=== PATIENT | male | born 1965 | race Caucasian/White ===

== ENCOUNTER 2017-03-21 05:53 | Inpatient (IN) ==
[2017-03-21] MEDS ORDERED: Ringers Solution, Lactated 1,000 ML IVC SCH ×2 (06:15→13:14)
[2017-03-21] MEDS ORDERED: CeFAZolin Pre 2,000 MG/100 ML 2,000 MG/100 ML BAG IVPB ONE (06:16)
[2017-03-21] MEDS ORDERED: Albuterol 2.5 MG/3 ML NEBULIZER IH ONE (06:16)
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
[2017-03-21] MEDS ORDERED: Lidocaine -MPF 2% 2 ML VIAL ONE (07:15)
[2017-03-21] MEDS ORDERED: Ketorolac 30 MG/ML VIAL ONE (07:15)
[2017-03-21] MEDS ORDERED: *HR* Propofol 200 MG/20 ML VIAL IVP ONE ×2 (07:15→10:03)
[2017-03-21] MEDS ORDERED: *HR* Midazolam HCl 2 MG/2 ML VIAL ONE (07:15)
[2017-03-21] MEDS ORDERED: Ondansetron 4 MG/2 ML VIAL ONE (07:15)
[2017-03-21] MEDS ORDERED: *HR* Remifentanil 1 MG VIAL IVP ONE ×3 (07:16→10:44)
[2017-03-21] MEDS ORDERED: Lidocaine -MPF 4% 5 ML AMPUL ONE (07:44)
--- NOTE | 2017-03-21 07:58 | History & Physical Report ---
Date of Encounter: 03/21/17 Time of Encounter: 07:35 24 Hour HP Update - Instructions Instructions: If the History and Physical is less than 30 days old and was completed prior to A.M. admission and or procedure and has NOT been updated on calendar day of procedure please complete this update prior to performing procedure. - Update Patient reports changes in Medical Condition: No Changes in examination, assessment, or condition: No Changes in Medication: No Preop tests/diagnostics Reviewed: Yes Pre-Op MRSA Screen: Negative Surgery Remains Indicated: Yes Consent for Planned Operative Procedure(s) Verified: Yes - Pre-Operative Checklist Preoperative Checklist Indicated: No Prophylactic Antibiotic Ordered: Yes Home Medications Include Beta Estefanía: No Beta Estefanía Taken Today (Day of Surgery): No Beta Estefanía Taken Yesterday (Day Prior to Surgery): No Is VTE Prophylaxis Indicated?: Yes
[2017-03-21] MEDS ORDERED: *HR* FentaNYL (PF) 100 MCG/2 ML VIAL ONE (08:09)
[2017-03-21] MEDS ORDERED: EPHEDrine 50 MG/ML VIAL ONE (08:43)
[2017-03-21] MEDS ORDERED: *HR* Phenylephrine 10 MG/ML VIAL ONE (09:14)
[2017-03-21] MEDS ORDERED: *HR* Vasopressin 20 UNIT/ML VIAL ONE (10:38)
[2017-03-21] MEDS ORDERED: *HR* Promethazine 25 MG/ML VIAL IVP PRN (11:50)
[2017-03-21] MEDS ORDERED: Albuterol 2.5 MG/3 ML NEBULIZER IH PRN (11:50)
[2017-03-21] MEDS ORDERED: *HR* Midazolam HCl 2 MG/2 ML VIAL IVP PRN (11:50)
[2017-03-21] MEDS ORDERED: *HR* HYDROmorphone (PF) 1 MG/ML SYRINGE IVP PRN (11:50)
[2017-03-21] MEDS ORDERED: *HR* HYDROmorphone 2 MG/ML SYRINGE ONE (11:55)
[2017-03-21] MEDS ORDERED: Neostigmine Methylsulfate 3 MG/3 ML SYRINGE ONE (11:58)
[2017-03-21] MEDS ORDERED: Dexamethasone 4 MG/ML VIAL ONE (11:59)
--- NOTE | 2017-03-21 12:27 | Orthopedic Operative Note ---
Date of procedure: 03/21/17 Pre-op diagnosis: Degenerative scoliosis, lumbar stenosis with radiculopathy, s/ p lumbar fusi Post-op diagnosis: same Operation/Findings: Exploration of fusion, removal of hardware, posterior lumbar interbody fusion L4 -L5: The patient successfully underwent general endotracheal anesthesia. The patient was given antibiotics prior to the start of the procedure. Compression boots and stockings were used for deep vein thrombosis prophylaxis. A Shaw catheter was placed. Leads for neuro monitoring were placed on the upper and lower extremities. This included the cranium. The neuro monitoring personnel confirmed there were satisfactory readings prior to the start of the procedure. The patient was turned prone on the Alfonso table. The back was prepped and draped in the usual sterile fashion. An incision was was marked and centered over the involved L4-S1 levels in the mid line. The incision was deepened through the lumbar fascia. Bovie cautery and Montaño elevators were used to reflect the paraspinal musculature at the lateral extent of the transverse processes of the involved L4, L5, and S1 levels. Yanni clamps were placed over the L4 and L5 spinous processes. An intraoperative lateral fluorograph was obtained. A conversation was held between the surgeon and radiologist and both confirmed we had the correct operative levels. We explored and palpated the fusion mass at L5 and S1 and the hardware in this region. Direct palpation of the fusion mass revealed a relatively solid arthrodesis. We removed the pedicle screws at L5 and S1 including the intervening rods bilaterally. We then placed new pedicle screws in standard fashion with the aid of fluoroscopy and anatomic landmarks. Briefly a starter awl was used. A gearshift was subsequently used to enter the pilot plant research technician hole via a transpedicular route into the vertebral body. The pilot plant research technician hole was tapped with an undersized instrument, and subsequently four 6.5 x 40 mm pedicle screws were placed bilaterally at the indicated L4 and L5 levels. The screws were tested with the aid of the neurologic monitoring staff via pedicle screw stimulation. All reading suggested there was no significant cortical wall breech. The screws were also evaluated fluoro- graphically and appeared to be in satisfactory position. We then turned our attention to the decompression portion of the procedure. We removed the supraspinous and interspinous ligaments and subsequently the insertion of the ligamentum flavum on the undersurface of the proximal L4 lamina was dislodged with a curette. We then removed the ligamentum flavum as well as undercut the L4-L5 facets at this level to decompress the lateral recesses. We also performed a L4 laminectomy. After the decompression, which was over and above that which was required to place the interbody graft, the foramen and traversing roots at this L4-L5 level were found to be free and patent. We also took part of the medial facets in order to aid in the decompression. We then protected the neural elements including the thecal sac and traversing nerve root on the right at L4-5 with a dural retractor. We made an annulotomy into the L4-5 disc space and then removed disc material using Pituitary instruments. We trialed various size grafts after the endplates were prepared for graft insertion. A 12 x 26 enter body graft fit well within the L4 -L5 disc space. We obtained some bone from the right posterior superior iliac spine through us a separate incision and combined with this with the bone which we had saved from the laminectomy portion of the procedure. This autograft bone was first placed in the anterior portion of the L4-L5 disc space and additional bone was placed within the interbody graft spacer. We then placed the interbody graft spacer obliquely across the L4-L5 disc space towards the midline while protecting the neural elements with a root retractor. When the graft was found to be in satisfactory position the cement truck loader was removed. We then copiously irrigated the wound. We then decorticated the L4 and L5 transverse processes as well as the L4-L5 facet joints of the involved levels to aid in the posterolateral fusion. We placed autograft bone in the lateral gutters over these regions. We then placed rods within the screw heads of the involved L4 and L5 levels and first locked the distal screws and then subsequently locked the proximal screws. We then closed the wound in layers with 1 Vicryl for the fascia, 2-0 Vicryl. Subcutaneous tissue, and Dermabond was used for skin closure. Sterile dressings were placed over the wound. The patient was turned supine on a hospital bed and extubated. All sponge instruments and needle counts were correct at the end of the procedure. The patient tolerated the procedure well without complications. Anesthesia: GETA Surgeon: Konrad Davalos Jr Estimated blood loss (cc): 250 Condition: stable Disposition: PACU
--- NOTE | 2017-03-21 13:04 | Anesthesia Evaluation Post Op ---
Date of Encounter: 03/21/17 Time of Encounter: 13:03 - Vital Signs Vital Signs: Vital Signs/O2 Sat/Glucose, Most Recent Temp Pulse Resp BP Pulse Ox 98.1 F 82 17 127/63 96 03/21/17 12:54 03/21/17 12:54 03/21/17 12:54 03/21/17 12:54 03/21/17 12:54 - Lungs Lungs: Clear Ascult./Percussion - Airway Airway: Non-obstructed - Cardiovascular Regular Rate, Baseline Rhythm - Mental Status Mental Status: Asleep with brisk response to light stimulation - Pain Pain Scale: 5 Pain Scale used: Numeric (1 - 10) - Nausea Vomiting Nausea Vomiting: Not Present - Hydration Hydration: Ice chips, Shaw catheter Notes: 03/21/17 13:03 naac - Discharge PostOp Status: Transfer Patient to floor
[2017-03-21] MEDS ORDERED: Ondansetron 4 MG/2 ML VIAL IVP PRN (13:14)
[2017-03-21] MEDS ORDERED: USTEKINUMAB 90 MG/ML SQ SCH (13:14)
[2017-03-21] MEDS ORDERED: Naloxone 0.4 MG/ML INJ IVP PRN (13:14)
[2017-03-21] MEDS: *HR* Morphine 2 MG/ML SYRINGE IVP PRN ×2 (13:32→17:46)
[2017-03-21] MEDS: *HR* OxyCODONE Immed Rel 5 MG TABLET PO PRN ×2 (14:28→20:27)
[2017-03-21] MEDS: ceFAZolin 2,000 MG in D5% in Water 100 ML IVPB SCH (16:27)
[2017-03-22] MEDS: *HR* Morphine 2 MG/ML SYRINGE IVP PRN ×3 (00:14→15:48)
[2017-03-22] MEDS: ceFAZolin 2,000 MG in D5% in Water 100 ML IVPB SCH (00:14)
[2017-03-22] MEDS: *HR* OxyCODONE Immed Rel 5 MG TABLET PO PRN ×3 (03:51→19:23)
[2017-03-22 04:26] LABS: Basophils % 0.2 %; Hematocrit 45.4 % (37.5-50.1); Hemoglobin 15.4 g/dL (12.9-16.9); Immature Granulocytes % 0.7 % (0-4); Lymphocytes # 1.1 K/mcL (0.6-4.6); Lymphocytes % 5.6 %; Mean Corpuscular HGB Conc 33.9 g/dL (31.6-35.5); Mean Corpuscular Hemoglobin 30.1 pg (28.0-33.3); Mean Corpuscular Volume 88.7 fL (83.0-100.0); Mean Platelet Volume 10.1 fL (9.4-12.4); Monocytes # 1.7 K/mcL (0.0-1.3); Monocytes % 8.7 %; Neutrophils # 16.8 K/mcL (1.6-8.9); Platelet Count 193 K/mcL (140-400); Red Blood Count 5.12 M/mcL (4.19-5.50); Red Cell Distribution Width 12.2 % (11.5-14.5); Segmented Neutrophils % 84.8 %
[2017-03-22 04:45] LABS: BUN/Creatinine Ratio 12 (6-26); Blood Urea Nitrogen 10 mg/dL (8-26); Calcium 8.9 mg/dL (8.6-10.8); Carbon Dioxide 21 mEq/L (19-29); Chloride 107 mEq/L (98-109); Glucose 133 mg/dL (70-99); Osmolality,Calculated 285 (280-300); Potassium 4.5 mEq/L (3.5-4.5); Sodium 137 mEq/L (136-145); eGFR For African Americans > 60 (> 60); eGFR For Non-African Americans > 60 (> 60)
[2017-03-22] MEDS: NEBIVOLOL HCL 2.5 MG PO SCH (07:22)
--- NOTE | 2017-03-22 10:50 | Orthopedics Progress Note ---
Date of Encounter: 03/22/17 Time of Encounter: 12:30 - Assessment and Plan (1) Spinal stenosis of lumbar region with radiculopathy Current Visit: Yes Status: Chronic Discussed with patient. Dressing change requested from nurse. Will add Acetaminophen for anti-inflammatory action. Will add trial of muscle relaxer for the stiffness. Will get brace adjustment for patient as he states it is very uncomfortable. Case discussed with Dr. Davalos. Will see patient tomorrow and discuss discharge plan with social work at that point. (2) Degenerative scoliosis Current Visit: Yes Status: Chronic Subjective Principal diagnosis: Lumbar stenosis/radiculopathy Interval history: Mr. Sandoval is 52 yo male POD#1 Exploration of fusion, removal of hardware, posterior lumbar interbody fusion L4-L5 performed 03/21/17. Patient had degenerative scoliosis, lumbar stenosis with radiculopathy, and was s/p lumbar fusion. He states his pain is moderately controlled however he admits he was taking Vicodin every 3-4 hours prior to surgery. He states that he is having stiffness and pain in the low back in the area of his incision. Patient resting in bed, alert and oriented x 3. Low back incision site intact - dressing lifting at distal aspect and incision exposed. Patient is neurovascularly intact. Discussed with patient. Dressing change requested from nurse. Will add Acetaminophen for anti-inflammatory action. Will add trial of muscle relaxer for the stiffness. Will get brace adjustment for patient as he states it is very uncomfortable. Case discussed with Dr. Davalos. Will see patient tomorrow and discuss discharge plan with social work at that point. Objective Vital signs: Vital Signs Temp Pulse Resp BP Pulse Ox 03/22/17 10:33 98.3 F 85 14 143/85 96 03/22/17 07:04 98.2 F 89 16 136/80 95 03/22/17 04:04 98.4 F 89 16 144/75 98 03/22/17 01:04 94 03/22/17 00:19 98.4 F 88 18 111/54 94 03/21/17 20:37 98.2 F 88 18 145/68 95 03/21/17 17:14 98.3 F 84 16 127/91 96 03/21/17 15:19 98.5 F 86 14 125/65 92 03/21/17 14:26 98.0 F 78 15 136/73 92 03/21/17 13:57 97.7 F 69 14 129/79 93 03/21/17 13:25 98.1 F 78 14 134/67 96 03/21/17 13:04 98.1 F 79 16 126/74 95 03/21/17 12:54 98.1 F 82 17 127/63 96 03/21/17 12:44 86 20 130/67 98 03/21/17 12:34 72 20 134/83 94 03/21/17 12:24 97.4 F L 85 20 135/72 99 Intake and Output 03/21/17 03/22/17 03/22/17 23:59 07:59 15:59 Intake Total 500 / 500 2100 / 2100 100 / 100 Output Total 1100 / 1100 2200 / 2200 Balance -600 / -600 -100 / -100 100 / 100 Intake: IV Fluids 100 / 100 1000 / 1000 Lactated Ringers 1,000 ML 1000 / 1000 @ 100 mls/hr IVC .Q10H BLANCA Rx#:[id number] Ancef 2,000 MG In 100 / 100 Dextrose 5% 100 ML @ 200 mls/hr IVPB Q8HR BLANCA Rx#: [id number] Oral 400 / 400 1100 / 1100 100 / 100 Output: Straight Cath 750 / 750 425 / 425 Catheter 350 / 350 1775 / 1775 Other: Meal Breakfast Percent of Meal Consumed 95% - Labs CBC & BMP: 03/22/17 04:14 03/22/17 04:14 Labs: Abnormal lab results WBC 19.8 K/mcL (4.3-11.1) H D 03/22/17 04:14 Neutrophils # 16.8 K/mcL (1.6-8.9) H 03/22/17 04:14 Monocytes # 1.7 K/mcL (0.0-1.3) H 03/22/17 04:14 Glucose 133 mg/dL (70-99) H 03/22/17 04:14 - VTE Documentation of Mechanical Device: Intermittent pneumatic compression device Consult Discharge Plan - Plan Referrals: Eli Noriega, COCONUT COOKER [Primary Care Provider] -
[2017-03-22] MEDS: Lactobacillus 1 EACH CAP.SPRINK PO SCH (12:51)
[2017-03-22] MEDS ORDERED: tiZANidine 4 MG TABLET PO PRN (13:13)
[2017-03-23] MEDS: *HR* OxyCODONE Immed Rel 5 MG TABLET PO PRN ×2 (02:23→10:52)
[2017-03-23] MEDS: Lactobacillus 1 EACH CAP.SPRINK PO SCH (07:30)
[2017-03-23] MEDS: *HR* Morphine 2 MG/ML SYRINGE IVP PRN (07:30)
[2017-03-23] MEDS: NEBIVOLOL HCL 2.5 MG PO SCH (08:15)
--- NOTE | 2017-03-23 09:51 | Orthopedics Progress Note ---
Date of Encounter: 03/23/17 Time of Encounter: 09:45 - Assessment and Plan (1) Spinal stenosis of lumbar region with radiculopathy Current Visit: Yes Status: Chronic Discussed with patient. Xray ordered for tomorrow by Dr. Davalos. Elevated white count noted on CBC from yesterday - discussed with Dr. Davalos most likely post-operative changes and given patient is otherwise stable will not repeat at this time. Acetaminophen and muscle relaxer helping with low back pain - however not complete relief so will change Acetaminophen and Tizanidine dosing. Brace adjusted yesterday - patient states much more comfortable. Notified Dr. Davalos of patient's progress. Plan to discharge home tomorrow - per PT/OT no needs. (2) Degenerative scoliosis Current Visit: Yes Status: Chronic Subjective Principal diagnosis: Lumbar stenosis/radiculopathy Interval history: Mr. Sandoval is 52 yo male POD#2 Exploration of fusion, removal of hardware L5- S1, posterior lumbar interbody fusion L4-L5 performed 03/21/17. Patient had degenerative scoliosis, lumbar stenosis with radiculopathy, and was s/p lumbar fusion. He states his pain is improved however not completely controlled - states pain in incisional area worsened but leg pain improved. He states that he is having stiffness and pain in the low back in the area of his incision. Patient resting in bed, alert and oriented x 3. Low back incision site intact - dressing in place. Patient is neurovascularly intact. Discussed with patient. Xray ordered for tomorrow by Dr. Davalos. Elevated white count noted on CBC from yesterday - discussed with Dr. Davalos most likely post-operative changes and given patient is otherwise stable will not repeat at this time. Acetaminophen and muscle relaxer helping with low back pain - however not complete relief so will change Acetaminophen and Tizanidine dosing. Brace adjusted yesterday - patient states much more comfortable. Notified Dr. Davalos of patient's progress. Plan to discharge home tomorrow - per PT/OT no needs. Objective Vital signs: Vital Signs Temp Pulse Resp BP Pulse Ox 03/23/17 07:34 98.5 F 76 16 150/91 92 03/23/17 00:28 98.6 F 104 18 113/64 97 03/22/17 19:44 98.6 F 90 18 103/66 94 03/22/17 15:36 98.7 F 87 20 158/87 97 03/22/17 10:33 98.3 F 85 14 143/85 96 Intake and Output 03/22/17 03/23/17 03/23/17 23:59 07:59 15:59 Intake Total 200 / 200 590 / 590 200 / 200 Balance 200 / 200 590 / 590 200 / 200 Intake: Oral 200 / 200 590 / 590 200 / 200 Other: Meal Dinner Breakfast Percent of Meal Consumed 25% 80% # Voids 1 1 - Labs CBC & BMP: 03/22/17 04:14 03/22/17 04:14 Labs: Abnormal lab results WBC 19.8 K/mcL (4.3-11.1) H D 03/22/17 04:14 Neutrophils # 16.8 K/mcL (1.6-8.9) H 03/22/17 04:14 Monocytes # 1.7 K/mcL (0.0-1.3) H 03/22/17 04:14 Glucose 133 mg/dL (70-99) H 03/22/17 04:14 - VTE Documentation of Mechanical Device: Intermittent pneumatic compression device Consult Discharge Plan - Plan Referrals: Eli Noriega BILLING SPECIALIST [Primary Care Provider] - Venessa Castro PAC [Physician Ammunition Storekeeper] - 04/05/17 8:10 am
[2017-03-23] MEDS: tiZANidine 4 MG TABLET PO PRN ×2 (12:27→20:50)
[2017-03-24] MEDS: *HR* OxyCODONE Immed Rel 5 MG TABLET PO PRN ×2 (02:15→08:28)
[2017-03-24] MEDS: tiZANidine 4 MG TABLET PO PRN (04:56)
--- NOTE | 2017-03-24 08:18 | Discharge Summary ---
<Gloria,Amanda E - Last Filed: 03/24/17 08:58> Date of Encounter: 03/24/17 Time of Encounter: 07:45 - Discharge Diagnosis (1) Status post lumbar spinal fusion Priority: Primary Status: Resolved Comments: Patient POD#3 from Exploration of fusion, removal of hardware L5-S1, posterior lumbar interbody fusion L4-L5 performed 03/21/17. Patient had degenerative scoliosis, lumbar stenosis with radiculopathy, and was s/p lumbar fusion. Patient doing well. Discharge to home. No PT/OT needs. Follow up in office in 2 weeks as scheduled. (2) Spinal stenosis of lumbar region with radiculopathy Priority: Primary Status: Chronic (3) Degenerative scoliosis Priority: Primary Status: Chronic - Discharge Medications Prescriptions: OxyCODONE Immed Rel [Roxicodone 5 MG] 5 mg PO Q6HR PRN #40 tablet PRN Reason: Severe Pain Acetaminophen [Tylenol] 1,000 mg PO Q8HR PRN #84 tablet PRN Reason: Mild to Moderate Pain Home Medications: DULoxetine [Cymbalta] 20 mg PO BID 03/21/17 [History] Lactobacillus Combination No.8 [Adult Probiotic] 1 cap PO DAILY 03/21/17 [ History] Levothyroxine [Levothyroxine Sodium] 137 mcg PO DAILY@0630 03/21/17 [History] Nebivolol HCl [Bystolic] 2.5 mg PO DAILY 03/21/17 [History] Ustekinumab [STELARA (For Outpatient Infusion)] 90 mg SQ Q3M 03/21/17 [History] Acetaminophen [Tylenol] 1,000 mg PO Q8HR PRN #84 tablet 03/24/17 [Rx] OxyCODONE Immed Rel [Roxicodone 5 MG] 5 mg PO Q6HR PRN #40 tablet 03/24/17 [Rx] Allergies/Adverse Reactions: Allergies No Known Allergies Allergy (Verified 03/21/17 08:04) - Impressions ITS Impressions Lumbar Spine X-Ray 03/21/17 00:00 IMPRESSION: Postsurgical changes as above. D/ / Brad Kumar MD / Brad Kumar MD Interpreting Provider: Brad Kumar MD Date of admission: 03/21/17 13:20 Primary care physician: YISSEL Nieto Consults: 03/21/17 13:14 Consult to Occupational Therapy [CONS] Routine Comment: Evaluate, develop and implement POC Reason for Consult: Postoperative Consult to Physical Therapy [CONS] Routine Comment: Evaluate, develop and implement POC Reason for Consult: Postoperative rehabilitation Consult to Spine Navigator [CONS] [CONS] Routine - Patient Status Disposition: Home, Self-Care Condition: Good Functional capacity at discharge: uses cane/walker Overall status at discharge: patient is progressing back to baseline - Discharge Instructions Follow Up With: Venessa Castro PAC [Physician Lead Care Manager] - 04/05/17 8:10 Eli Coffman, DIESEL POWERPLANT SUPERVISOR [Primary Care Provider] - - Diet and Activity Activity: as per physical therapy Diet: advance to your usual diet - Hospital Course Hospital course: Mr. Sandoval is a 52 year old male - Time Spent with Patient Total time spent providing and/or coordinating discharge services: - VTE Documentation of Mechanical Device: Intermittent pneumatic compression device <Konrad Davalos Jr - Last Filed: 03/24/17 12:29> Date of Encounter: 03/24/17 - Discharge Diagnosis (1) Spinal stenosis of lumbar region with radiculopathy Priority: Primary Status: Chronic (2) Degenerative scoliosis Priority: Secondary Status: Chronic (3) Status post lumbar spinal fusion Priority: Secondary Status: Resolved - Impressions ITS Impressions Lumbar Spine X-Ray 03/21/17 00:00 IMPRESSION: Postsurgical changes as above. D/ / Brad Kumar MD / Brad Kumar MD Interpreting Provider: Brad Kumar MD Lumbar Spine X-Ray 03/24/17 12:28 IMPRESSION: 1. Interval revision of posterior spinal fusion spanning L4-5. 2. No acute fracture or disruption of the orthopedic hardware identified. 3. Dextroconvex lumbar scoliosis. D/ / 03/24/2017 08:28:16 Gurpreet Salvador MD / Mary Faustin Interpreting Provider: Gurpreet Salvador MD Date of admission: 03/21/17 13:20 Primary care physician: YISSEL Nieto Consults: 03/21/17 13:14 Consult to Occupational Therapy [CONS] Routine Comment: Evaluate, develop and implement POC Reason for Consult: Postoperative Consult to Physical Therapy [CONS] Routine Comment: Evaluate, develop and implement POC Reason for Consult: Postoperative rehabilitation Consult to Spine Navigator [CONS] [CONS] Routine - Hospital Course Hospital course: Mr. Sandoval is a 52 year old male The patient had an uneventful postoperative course. Progressed from intravenous analgesic needs to oral analgesic needs only. Remained neurovascularly intact and mobilized satisfactorily. All intraoperative and/or postoperative radiographic studies were satisfactory. Patient is discharged with plan for rehabilitation and follow-up in 2 weeks post discharge on analgesic medication and patient's home medications. - Time Spent with Patient Total time spent providing and/or coordinating discharge services:
[2017-03-24] MEDS: Lactobacillus 1 EACH CAP.SPRINK PO SCH (08:28)
[2017-03-24 11:32] VITALS: BP 114/69
[2017-03-24] MEDS ORDERED: *HR* OxyCODONE Immed Rel 5 MG TABLET PO PRN (13:30)
== END 2017-03-24 14:51 | disposition home or self-care (01) | DRG 460 ==
LOC: SAMDAY 05:53 → 3NENU 13:20
PROVIDERS: ADMIT Orthopaedic Surgery Orthopaedic Surgery of the Spine; ATTEND Orthopaedic Surgery Orthopaedic Surgery of the Spine